=== PATIENT | female | born 1980 | race African-American/Black ===

== ENCOUNTER 2017-07-02 20:47 | Emergency (ER) | payer BC ==
[~2017-07-02] VITALS: Ht 162.6 cm; Wt 61.7 kg
[2017-07-02 21:00] VITALS: BP 133/78
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
== END 2017-07-02 23:25 | disposition home or self-care (01) ==
LOC: ER 20:47
DX: N89.8 Other specified noninflammatory disorders of vagina (principal); R10.30 Lower abdominal pain, unspecified; J45.909 Unspecified asthma, uncomplicated
CPT/HCPCS: 81025; 87491; 87591; 99284; Q0111; 99283